=== PATIENT | male | born 1980 | race American Indian/Alaskan Native ===

== ENCOUNTER 2017-11-23 14:29 | Emergency (ER) | payer SELFPAY ==
[2017-11-23 15:02] VITALS: BP 157/106
--- NOTE | 2017-11-23 15:27 | XRay Report ---
RIGHT TOES, 3 views: History: Pain. Normal bone mineralization. There is a cortical defect involving the proximal phalanx of the great toe which abuts the interphalangeal joint. This presumably represents a fracture. The remaining right toes are intact. The soft tissues are unremarkable. IMPRESSION: Probable fracture of the proximal phalanx of the right great toe. Please correlate with the patient and the image.
[2017-11-23] MEDS ORDERED: MOTRIN PO ONE (17:54)
--- NOTE | 2017-11-23 17:59 | Emergency Department Report ---
ED Extremity Problem HPI - General Chief complaint: Extremity Injury, Lower Stated complaint: RT FOOT PAIN Time Seen by Provider: 11/23/17 17:47 Source: patient Mode of arrival: Ambulatory Limitations: No Limitations - History of Present Illness Initial comments: She was a 37-year-old [place] male who was running yesterday in flip-flops and his great toe on his right foot bent underneath his foot. The patient is having pain at the mid great toe. Patient is able to ambulate but this makes pain worse. Patient states pain is 6 out of 10 in severity and throbbing. Vision has no other injuries at this time. - Related Data Previous Rx's Medication Instructions Recorded Last Taken Type HYDROcodone/APAP 5-325 [Amity 1 each PO Q6HR PRN #12 tablet 11/23/17 Unknown Rx 5/325] Ibuprofen [Motrin] 800 mg PO Q8HR PRN #20 tablet 11/23/17 Unknown Rx Allergies Allergy/AdvReac Type Severity Reaction Status Date / Time No Known Allergies Allergy Unverified 11/23/17 14:59 ED Review of Systems ROS: Stated complaint: RT FOOT PAIN Other details as noted in HPI Comment: All other systems reviewed and negative ED Past Medical Hx - Past Medical History Hx Hypertension: Yes Additional medical history: Bile obstruction - Surgical History Hx Appendectomy: Yes - Social History Smoking Status: Current Every Day Smoker Substance Use Type: None - Medications Home Medications: Home Medications Medication Instructions Recorded Confirmed Last Taken Type HYDROcodone/APAP 5-325 [Amity 1 each PO Q6HR PRN #12 tablet 11/23/17 Unknown Rx 5/325] Ibuprofen [Motrin] 800 mg PO Q8HR PRN #20 tablet 11/23/17 Unknown Rx ED Physical Exam - General Limitations: No Limitations General appearance: alert, in no apparent distress - Head Head exam: Present: atraumatic, normocephalic - Eye Eye exam: Present: normal appearance - ENT ENT exam: Present: mucous membranes moist - Neck Neck exam: Present: normal inspection - Respiratory Respiratory exam: Present: normal lung sounds bilaterally. Absent: respiratory distress, wheezes, rales, rhonchi - Cardiovascular Cardiovascular Exam: Present: regular rate, normal rhythm. Absent: systolic murmur, diastolic murmur, rubs, gallop - GI/Abdominal GI/Abdominal exam: Present: soft, normal bowel sounds - Rectal Rectal exam: Present: deferred - Extremities Exam Extremities exam: Present: normal inspection, other (patient's right great toe shows some mild swelling and diffuse tenderness) - Back Exam Back exam: Present: normal inspection - Neurological Exam Neurological exam: Present: alert, oriented X3 - Psychiatric Psychiatric exam: Present: normal affect, normal mood - Skin Skin exam: Present: warm, dry, intact, normal color. Absent: rash ED Course Vital Signs 11/23/17 14:59 Temperature 98.7 F Pulse Rate 92 H Respiratory 18 Rate Blood Pressure 157/106 O2 Sat by Pulse 99 Oximetry ED Medical Decision Making - Radiology Data Patient: LEIGH RUCKER MR#: [id number] : 1980 Acct:[id number] Age/Sex: 37 / M ADM Date: 11/23/17 Loc: ED Attending Dr: Ordering Physician: ALY GOMEZ MD Date of Service: 11/23/17 Procedure(s): XR toe(s) 2+V RT Accession Number(s): [id number] cc: ED MD JASON Fluoro Time In Minutes: RIGHT TOES, 3 views: History: Pain. Normal bone mineralization. There is a cortical defect involving the proximal phalanx of the great toe which abuts the interphalangeal joint. This presumably represents a fracture. The remaining right toes are intact. The soft tissues are unremarkable. IMPRESSION: Probable fracture of the proximal phalanx of the right great toe. Please correlate with the patient and the image. Transcribed By: TTR Dictated By: EDUAR RODRIGUEZ JR, MD Electronically Authenticated By: EDUAR RODRIGUEZ JR, MD Signed Date/Time: 11/23/17 1505 Critical care attestation.: If time is entered above; I have spent that time in minutes in the direct care of this critically ill patient, excluding procedure time. ED Disposition Clinical Impression: Toe fracture Qualifiers: Encounter type: initial encounter Toe: great toe Fracture type: closed Phalanx : proximal Fracture alignment: nondisplaced Laterality: right Qualified Code(s) : S92.414A - Nondisplaced fracture of proximal phalanx of right great toe, initial encounter for closed fracture Disposition: - TO HOME OR SELFCARE Is pt being admited?: No Does the pt Need Aspirin: No Condition: Stable Instructions: Toe Fracture (ED) Referrals: LYLY GARCIA MD [Staff Physician] - 3-5 Days
== END 2017-11-23 18:26 | disposition home or self-care (01) ==
LOC: ED 14:29
DX: S92.414A Nondisplaced fracture of proximal phalanx of right great toe, initial encounter for closed fracture (principal); I10 Essential (primary) hypertension; F17.200 Nicotine dependence, unspecified, uncomplicated; Z90.89 Acquired absence of other organs; X50.1XXA Overexertion from prolonged static or awkward postures, initial encounter; Y93.02 Activity, running; Y92.89 Other specified places as the place of occurrence of the external cause; Y99.8 Other external cause status
CPT/HCPCS: 99283